=== PATIENT | female | born 1990 | race Caucasian/White ===

== ENCOUNTER 2017-05-11 14:23 | Emergency (ER) | payer OTHER ==
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
[~2017-05-11 14:23] MED LIST: ACETAMINOPHEN PO; AMOXICILLIN500 M1 PO; BACTRIM DS TABL1 TA1 PO; DICLOFENAC PO; DIFLUCAN100 MG PO; HYDROCORTISONE30 G1 EXT; LORTAB 7.5-5001 TAB PO; LOTRIMIN30 GM; LOTRIMIN30 GM TOP; MILK OF MAGNESIA PO; NAPROSYN250 M1 PO; NO MEDICATIONS; ORUDIS75 M1 PO; PHENERGAN PO; PHENERGAN25 MG PO; PYRIDIUM PO; VOLTAREN75 MG PO
== END 2017-05-11 15:57 | disposition home or self-care (01) ==
LOC: SED 14:23
DX: M25.512 Pain in left shoulder (principal); R52 Pain, unspecified; F17.210 Nicotine dependence, cigarettes, uncomplicated
CPT/HCPCS: 73030; 99283

== ENCOUNTER 2017-05-28 23:07 | Emergency (ER) | payer OTHER ==
[2017-05-28] MEDS ORDERED: NO MEDICATIONS (23:19)
[2017-05-28 23:39] LABS: URINE SOURCE CLEAN CATCH
[2017-05-28 23:41] LABS: URINE APPEARANCE CLEAR; URINE BILIRUBIN NEG (NEG); URINE BLOOD TRACE-INTACT (NEG); URINE COLOR YELLOW; URINE GLUCOSE NEG (NORM); URINE KETONE NEG (NEG); URINE LEUKOCYTE ESTERASE NEG (NEG); URINE NITRATE NEG (NEG); URINE PROTEIN NEG (NEG); URINE SPECIFIC GRAVITY >=1.030 (1.003-1.035); URINE UROBILINOGEN 0.2 MG/DL (NORM)
[2017-05-28 23:42] LABS: MICRO INDICATED? YES
[2017-05-28 23:43] LABS: CULTURE INDICATED? NO; URINE BACTERIA NEG (NEG); URINE MUCUS PRESENT; URINE RBC NEG /[HPF] (0-2); URINE SQUAMOUS EPITHELIAL CELL OCCAS /[HPF]; URINE WBC NEG /[HPF] (0-5)
== END 2017-05-28 23:58 | disposition home or self-care (01) ==
LOC: SED 23:07
PROVIDERS: Emergency Medicine
DX: O99.89 Other specified diseases and conditions complicating pregnancy, childbirth and the puerperium (principal); R10.2 Pelvic and perineal pain; Z90.49 Acquired absence of other specified parts of digestive tract; O99.330 Smoking (tobacco) complicating pregnancy, unspecified trimester
CPT/HCPCS: 81003; 84703; 99284

== ENCOUNTER 2017-07-21 15:55 | Emergency (ER) | payer OTHER ==
--- NOTE | ~2017-07-21 | EKG ---
PATIENT: BENSON LOBO UNIT #: [id number] Ventricular Rate: 64 BPM Atrial Rate: 64 BPM P-R Interval: 136 ms QRS Duration: 82 ms Q-T Interval: 386 ms QTC Calculation(Bezet): 398 ms P [place]: 41 degrees Calculated R [place]: 54 degrees Calculated T [place]: 46 degrees Diagnosis Line: Normal sinus rhythm Diagnosis Line: RSR' or QR pattern in V1 suggests right Diagnosis Line: ventricular conduction delay Diagnosis Line: Borderline ECG Diagnosis Line: No previous ECGs available Diagnosis Line: Confirmed by MALORIE REGALADO MD ([id number]) on Diagnosis Line: 07/22/2017 1:51:04 PM INTERPRETING MD: SABINE ZAVALA
--- NOTE | ~2017-07-21 | US106 ---
[facility] A Service of [facility] RADIOLOGY TEXT RESULTS PATIENT: BENSON LOBO LOCATION: SED : 89 UNIT #: [id number] AGE: [address]: CHARLA MARROQUIN SEX: F ORDER DR: [id number] [address] [address] [id number] E MR#: [id number] Acc #: [id number] NAME: BENSON LOBO : 1990 SEX: F STUDY DATE/TIME: 07/21/2017 17:29 UNIT: SED ROOM: STUDY DESCRIPTION: US Preg Uterus Transvaginal Attending Physician: Charla Marroquin Ordering Physician: Physician Non-Staff Primary Care Physician: Sary Urbina Aprn MEDICAL IMAGING REPORT This report is preliminary unless electronic signature is present. EXAM Transvaginal pelvic ultrasound 07/21/2017 HISTORY 26-year-old female with syncopal episode today. Patient is . COMPARISON: None. FINDINGS Trans vaginal scanning of the pelvis demonstrates a single living intrauterine gestation estimated 10 weeks 1 day by concordant ultrasound measurements. cardiac motion identified at 171 beats per minute. Uterus appears otherwise within expected limits. No subchorionic fluid collections. The right ovary in normal and measures 3 x 3.6 x 1.8 cm. Normal vascular flow in the right ovary. The left ovary is normal measures 3.4 x 3.5 x 1.6 cm. Normal vascular flow in the left ovary. No significant free pelvic fluid. IMPRESSION 1. Single living intrauterine gestation estimated at 13 weeks 1 day by concordant ultrasound measurements. cardiac motion identified at 171 beats per minute. 2. Both ovaries appear within normal limits. Dictated by... Sergio Johnson M.D. THIS IS AN ELECTRONICALLY VERIFIED REPORT Sergio Johnson M.D. at 07/22/2017 10:41 AM JTODD/cmm [facility] A Service of [facility] RADIOLOGY TEXT RESULTS PATIENT: BENSON LOBO LOCATION: SED : [birth year] UNIT #: [id number] AGE: [address]: CHARLA MARROQUIN SEX: F ORDER DR: TD: 07/22/2017 09:34 JOB #: [id number] MEDICAL IMAGING REPORT Page 1 of 1
[2017-07-21] MEDS ORDERED: PRENATAL FORMU1 EAC1 (16:16)
[2017-07-21 17:42] LABS: BASOPHIL% 0.4 % (0-2.5); EOSINOPHIL% 0.4 % (0.0-7.0); HEMATOCRIT 37.5 % (35.0-45.0); HEMOGLOBIN 12.9 gm/dL (12.0-16.0); LYMPHOCYTE# 1.6 X10e3 (1.0-3.5); LYMPHOCYTE% 14.6 % (17.0-45.0); MEAN CORPUSCULAR HEMOGLOBIN 32.3 PG (28-34); MEAN CORPUSCULAR HGB CONC 34.4 g/dL (30-36); MEAN PLATELET VOLUME 8.6 FL (6.5-11.5); MONOCYTE# 0.5 X10e3 (0-1.0); MONOCYTE% 4.7 % (3.0-12.0); NEUTROPHIL% 79.9 % (40-75); PLATELET COUNT 154 X10e3 (140-420); RED BLOOD COUNT 3.98 X10e (3.90-5.30); RED CELL DISTRIBUTION WIDTH 12.2 % (11.0-15.5); WHITE BLOOD COUNT 11.2 X10e3 (4.0-10.5)
[2017-07-21 17:43] LABS: DIFF IND NO
[2017-07-21 17:59] LABS: CALCIUM SERUM 9.2 mg/dL (8.4-10.2); CREATININE SERUM 0.5 mg/dL (0.6-1.4); GLOM FILT RATE Estimated 132.7 mL/min (>60); POTASSIUM 3.6 mmol/L (3.5-5.1)
[2017-07-21 19:20] LABS: URINE SOURCE CLEAN CATCH
[2017-07-21 19:25] LABS: URINE APPEARANCE HAZY; URINE BILIRUBIN NEG (NEG); URINE BLOOD NEG (NEG); URINE COLOR YELLOW; URINE GLUCOSE NEG (NORM); URINE LEUKOCYTE ESTERASE 1+ (NEG); URINE NITRATE NEG (NEG); URINE PROTEIN NEG (NEG); URINE UROBILINOGEN 0.2 MG/DL (NORM)
[2017-07-21 19:28] LABS: MICRO INDICATED? YES; URINE KETONE 3+ (NEG)
[2017-07-21 19:34] LABS: CULTURE INDICATED? YES; URINE BACTERIA NEG (NEG); URINE SQUAMOUS EPITHELIAL CELL FEW /[HPF]; URINE WBC 50-100 /[HPF] (0-5)
[2017-07-21 19:35] LABS: URINE MUCUS PRESENT; URINE YEAST PRESENT
== END 2017-07-21 20:10 | disposition home or self-care (01) ==
LOC: SED 15:55
PROVIDERS: Physician Assistant
DX: O99.89 Other specified diseases and conditions complicating pregnancy, childbirth and the puerperium (principal); R55 Syncope and collapse; O99.331 Smoking (tobacco) complicating pregnancy, first trimester; F17.210 Nicotine dependence, cigarettes, uncomplicated; Z90.89 Acquired absence of other organs; Z3A.12 12 weeks gestation of pregnancy
CPT/HCPCS: 36415; 76817; 80048; 81003; 82947; 84702; 85025; 87086; 93005; 96360; 96361; 99284